=== PATIENT | male | born 1990 | race Caucasian/White ===

== ENCOUNTER 2022-06-26 16:12 | Emergency (ER) | payer OTHER ==
[2022-06-26] MEDS ORDERED: Ketorolac Tromethamine 30 MG/ML VIAL ONE (16:31)
== END 2022-06-26 17:45 ==
LOC: CSHERS 16:12
DX: S62.317A Displaced fracture of base of fifth metacarpal bone, left hand, initial encounter for closed fracture (principal); W22.8XXA Striking against or struck by other objects, initial encounter
CPT/HCPCS: 29125; 96372; J1885